=== PATIENT | female | born 1960 | race Two or more races ===

== ENCOUNTER 2021-08-18 12:14 | Emergency (ER) | payer BC ==
[2021-08-18 12:50] VITALS: BP 118/77; PULSE 71; TEMP 98.2; BMI 38.3
[2021-08-18] MEDS ORDERED: BACITRACIN 0.9 GM PACKET TP ONE (13:21)
[2021-08-18] MEDS ORDERED: DIPHTH,PERTUSS(ACELL),TET 0.5 ML DISP.SYRIN IM ONE ×2 (13:21→13:25)
[2021-08-18] MEDS ORDERED: BACITRACIN 15 GM TUBE TOPICAL OINTMENT ONE (13:25)
== END 2021-08-18 14:19 | disposition home or self-care (01) ==
LOC: JERFT 12:14
PROC: 3E0234Z Introduction of Serum, Toxoid and Vaccine into Muscle, Percutaneous Approach (ICD-10-PCS; principal; 2021-08-18)
DX: M25.512 Pain in left shoulder (principal); W01.0XXA Fall on same level from slipping, tripping and stumbling without subsequent striking against object, initial encounter; Y93.02 Activity, running
CPT/HCPCS: 73030-TC-LT-FY; 73060-TC-LT-FY; 90715; 99284-25